=== PATIENT | female | born 1975 | race Caucasian/White ===

== ENCOUNTER 2016-08-02 15:47 | Emergency (ER) | payer BC ==
[~2016-08-02] VITALS: Wt 145.0 kg
[~2016-08-02 15:47] MED LIST: BENA20TA65; CEPH-443 PO; HYDR25TA6; IBUP800T25; IBUP800T25 PO; MECL12.574 PO; METF-382
[2016-08-02] MEDS ORDERED: IBUPROFEN 600 MG TAB PO ONE (16:30)
[2016-08-02] MEDS ORDERED: IBUP-1542 PO (16:44)
[2016-08-02] MEDS ORDERED: LORA10TA3 PO (16:44)
[2016-08-02] MEDS ORDERED: ALBU8.5H3 INH (16:44)
--- NOTE | 2016-08-02 17:12 | RADRPT ---
PROCEDURE: XR Chest. CLINICAL INDICATION: Clinical suspicion of infiltrate. TECHNIQUE: Single frontal view of the chest was obtained COMPARISON: No. FINDINGS: The soft tissues are normal. Degenerative changes are present in the thoracic spine para. The left side aorta, cardiomediastinal silhouette, pulmonary vasculature and hilar structures are normal. The lungs are clear. The costophrenic angles are normal. The left ventricle is upper limits of normal f or size. IMPRESSION: 1. Borderline left ventricular enlargement. 2. Spondylosis of the thoracic spine. 3. No evidence of active cardiopulmonary disease para RPTAT:AAJJ Physician Carlos Date Time Electronically viewed and signed by Physician Carlos on 08/02/2016 17:12 ARLETTE/
--- NOTE | 2016-08-02 21:43 | ERD ---
ER Documentation Chief Complaint Date/Time DATE: 08/02/16 TIME: 21:40 Chief Complaint R SIDE LAETERAL CHEST WALL PAIN WITH COUGHING. RUNNY NOSE AND HARMAN HPI This is a 40-year-old woman with URI symptoms including nasal congestion, rhinorrhea, and cough 3 days, she also states she has had sharp nonexertional nonradiating chest pain for 5-6 days which she states is unrelated to her URI symptoms. She states she has had this chest pain in the past and it is similar to previous episodes. Patient denies recent antibiotic use, no shortness of breath, no calf or leg swelling, no vomiting or diarrhea. ROS All systems reviewed and are negative except as per history of present illness. Medications Home Meds Active Scripts Albuterol Sulfate* (Proair HFA*) 8.5 Gm Hfa.aer.ad, 2 PUFF INH Q6H Y for COUGH, #1 INHALER Prov:YAN COLLIER MD 08/02/16 Loratadine* (Loratadine*) 10 Mg Tablet, 10 MG PO DAILY for NASAL CONGESTION, # 15 TAB Prov:YAN COLLIER MD 08/02/16 Ibuprofen* (Ibuprofen*) 600 Mg Tablet, 600 MG PO Q8 for PAIN AND/OR INFLAMMATION , #30 TAB Prov:YAN COLLIER MD 08/02/16 Meclizine Hcl* (Antivert*) 12.5 Mg Tab, 12.5 MG PO Q6H Y for vertigo, #20 TAB Prov:MARY ANN BEE MALE MODEL 08/23/15 Cephalexin* (Keflex*) 500 Mg Capsule, 500 MG PO QID for 7 Days, CAP Prov:ALEIDA NOBLES PA-C 05/31/15 Ibuprofen* (Motrin*) 800 Mg Tab, 800 MG PO Q6, #30 TAB Prov:ALEIDA NOBLES PA-C 05/31/15 Cephalexin* (Keflex*) 500 Mg Capsule, 500 MG PO QID, #28 CAP Prov:SUSANA MEI PA-C 01/17/15 Reported Medications Hydrochlorothiazide (Hydrochlorothiazide) 25 Mg Tablet 12/10/10 Ibuprofen* (Ibuprofen*) 800 Mg Tablet 12/10/10 Metformin Hcl* (Metformin Hcl*) 500 Mg Tablet 12/10/10 Benazepril Hcl* (Lotensin*) 20 Mg Tablet 4/16/10 Allergies Allergies: Coded Allergies: Oseltamivir (Verified Allergy, Mild, 12/10/10) Shellfish (Verified Allergy, Mild, 12/10/10) Uncoded Allergies: [id number] (SULFA (SULFONAMIDE ANTIBIOTICS)) (Allergy, Mild, rashes/ swelling of body, 12/10/10) PMhx/Soc Hypertension, obesity History of Surgery: Yes (CHOLECYSTECTOMY,bilateral shoulder, knee) Anesthesia Reaction: No Hx Neurological Disorder: No Hx Respiratory Disorders: No Hx Cardiac Disorders: No Hx Psychiatric Problems: No Hx Miscellaneous Medical Probl: No (diabetes, HTN) Hx Alcohol Use: No 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 No submandibular induration , and no pharyngeal erythema NEURO: Alert and oriented 3, cranial nerves II through XII intact bilaterally, pupils equal round reactive to light, no focal deficits or facial asymmetry, sensation intact distally Strength 5/5 in upper and lower extremities bilaterally CARDIAC: Tachycardic and regular, no murmurs rubs or gallops LUNGS: Clear bilaterally no wheezing crackles or stridor ABDOMEN: Soft nontender, no guarding, no rigidity, no rebound, no psoas sign no obturator sign. Normoactive bowel sounds SKIN: Warm and dry to touch, no abrasions, contusions, or hematomas, no lacerations, no ecchymosis, no target lesions, and without ulcers EXTREMITIES: No clubbing cyanosis or edema, calves are bilaterally symmetrical, no Homans sign, no popliteal cord sign. Distal pulses equal and bilateral PSYCH: Normal affect without agitation or irritability Results 24 hrs Current Medications Medications (Trade) Dose Ordered Sig/Kristy Route PRN Reason Start Time Stop Time Status Last Admin Dose Admin Ibuprofen (Motrin) 600 mg ONCE ONCE PO 08/02/16 16:30 08/02/16 16:32 DC 08/02/16 16:48 Procedures/MDM I administered ibuprofen 600 mg p.o. for the patient's symptoms with improvement. EKG performed, read by me: 97 bpm, normal sinus rhythm, normal axis, no acute ST segment changes, narrow QRS complex, with good R-wave progression in precordial leads. One AP view of the chest performed, read by me reveals no acute infiltrates, normal mediastinum, sharp costophrenic and cardiac borders, no air under the diaphragm. Otherwise unremarkable chest x-ray. Differential diagnoses considered, included but not limited to acute coronary syndrome, pulmonary embolism, aortic dissection, abdominal aortic aneurysm, sepsis, stroke, meningitis, encephalitis, pneumonia, appendicitis, cholecystitis , bowel obstruction, pyelonephritis, nephrolithiasis, cystitis, as well as metabolic, hematologic, and electrolyte abnormalities. As well as abscess, cellulitis, fractures, and dislocations. Patient feels much better at this time, and vital signs are normal, symptoms have improved. I did give strict instructions to return to the ED if symptoms continue or worsen, patient will otherwise follow-up with primary care physician. Patient understood instructions and agreed to plan. Departure Diagnosis: Primary Impression: Chest pain Chest pain type: unspecified Qualified Code: R07.9 - Chest pain, unspecified type Additional Impression: URI, acute Condition: Good Patient Instructions: Chest Pain, Uncertain Cause, Uri, Viral, No Abx (Adult) YAN COLLIER MD Aug 02, 2016 21:43
== END 2016-08-02 17:24 | disposition home or self-care (01) ==
LOC: FTE 15:47
DX: R07.89 Other chest pain (principal); J06.9 Acute upper respiratory infection, unspecified; I10 Essential (primary) hypertension; E11.9 Type 2 diabetes mellitus without complications; Z79.84 Long term (current) use of oral hypoglycemic drugs
CPT/HCPCS: 71010; Z7502; Z7610; 93005

== ENCOUNTER 2017-01-27 06:50 | Emergency (ER) | payer BC ==
[~2017-01-27] VITALS: Ht 152.4 cm; Wt 152.5 kg
[~2017-01-27 06:50] MED LIST changes: +ALBU8.5H3 INH; +IBUP-1542 PO; +LORA10TA3 PO; -METF-382; +METF500T4
[2017-01-27 06:54] VITALS: Ht 152.4 cm; Wt 152.5 kg
[2017-01-27] MEDS ORDERED: IBUPROFEN 800 MG TAB PO ONE (07:30)
[2017-01-27 07:39] LABS: URINE BLOOD (Dip) POC Negative (NEGATIVE)
[2017-01-27] MEDS ORDERED: CIPR500T4 PO (08:37)
[2017-01-27] MEDS ORDERED: NITR-58 PO (08:37)
[2017-01-27] MEDS ORDERED: NAPR-688 PO (08:38)
--- NOTE | 2017-01-27 08:50 | ERD ---
ER Documentation Chief Complaint Date/Time DATE: 01/27/17 TIME: 08:49 Chief Complaint PAIN AND BLOOD WITH URINATION HPI This 41-year-old female presents emergency room for dysuria and dark urine. She did not have a dark reddish orange urine until this morning and she took a Pyridium capsule last night. She has no fevers or chills and otherwise feels healthy. She is recently started taking new medication for her diabetes. She has not had very high sugars at home feels otherwise well. ROS All systems reviewed and are negative except as per history of present illness. Medications Home Meds Active Scripts Naproxen* (Naproxen*) 500 Mg Tablet, 500 MG PO BID Y for PAIN, #10 TAB Prov:SONNYTALAT DO 01/27/17 Nitrofurantoin Monohyd Macrocr* (Macrobid*) 100 Mg Capsr, 100 MG PO BID for 3 Days, CAP Prov:SONNYTALAT DO 01/27/17 Ciprofloxacin Hcl* (Ciprofloxacin Hcl*) 500 Mg Tablet, 500 MG PO BID for 3 Days , TAB Prov:SONNYTALAT DO 01/27/17 Albuterol Sulfate* (Proair HFA*) 8.5 Gm Hfa.aer.ad, 2 PUFF INH Q6H Y for COUGH, #1 INHALER Prov:YAN COLLIER MD 08/02/16 Loratadine* (Loratadine*) 10 Mg Tablet, 10 MG PO DAILY for NASAL CONGESTION, # 15 TAB Prov:YAN COLLIER MD 08/02/16 Ibuprofen* (Ibuprofen*) 600 Mg Tablet, 600 MG PO Q8 for PAIN AND/OR INFLAMMATION , #30 TAB Prov:YAN COLLIER MD 08/02/16 Meclizine Hcl* (Antivert*) 12.5 Mg Tab, 12.5 MG PO Q6H Y for vertigo, #20 TAB Prov:MARY ANN BEE NP 08/23/15 Cephalexin* (Keflex*) 500 Mg Capsule, 500 MG PO QID for 7 Days, CAP Prov:ALEIDA NOBLES PA-C 05/31/15 Ibuprofen* (Motrin*) 800 Mg Tab, 800 MG PO Q6, #30 TAB Prov:ALEIDA NOBLES PA-C 05/31/15 Cephalexin* (Keflex*) 500 Mg Capsule, 500 MG PO QID, #28 CAP Prov:SUSANA MEI PA-C 01/17/15 Reported Medications Hydrochlorothiazide (Hydrochlorothiazide) 25 Mg Tablet 12/10/10 Ibuprofen* (Ibuprofen*) 800 Mg Tablet 12/10/10 Metformin Hcl* (Metformin Hcl*) 500 Mg Tablet 12/10/10 Benazepril Hcl* (Lotensin*) 20 Mg Tablet 10/09/09 Allergies Allergies: Coded Allergies: Shellfish (Verified Allergy, Mild, 12/10/10) oseltamivir (Verified Allergy, Mild, 12/10/10) Uncoded Allergies: [id number] (SULFA (SULFONAMIDE ANTIBIOTICS)) (Allergy, Mild, rashes/ swelling of body, 12/10/10) PMhx/Soc History of Surgery: No Anesthesia Reaction: No Hx Neurological Disorder: No Hx Respiratory Disorders: No Hx Cardiac Disorders: No Hx Psychiatric Problems: No Hx Miscellaneous Medical Probl: No Hx Alcohol Use: No Hx Substance Use: No Hx Tobacco Use: No Smoking Status: Never smoker Physical Exam Vitals Vital Signs Date Time Temp Pulse Resp B/P Pulse Ox O2 Delivery O2 Flow Rate FiO2 01/27/17 06:54 97.9 100 18 137/87 98 Physical Exam Const: [] No distress, pleasant Abd: Soft, very mild suprapubic tenderness without guarding or rebound, non distended. Normal bowel sounds Skin: No petechiae or rashes Back: No midline or flank tenderness Ext: No cyanosis, or edema Neur: Awake and alert Psych: Normal Mood and Affect Results 24 hrs Laboratory Tests Test 01/27/17 07:45 Bedside Urine pH (LAB) 5.0 Bedside Urine Protein (LAB) Trace Bedside Urine Glucose (UA) 0.50% Bedside Urine Ketones (LAB) Trace Bedside Urine Blood Negative Bedside Urine Nitrite (LAB) Positive Bedside Urine Leukocyte Esterase (L Negative Current Medications Medications (Trade) Dose Ordered Sig/Kristy Route PRN Reason Start Time Stop Time Status Last Admin Dose Admin Ibuprofen (Motrin) 800 mg ONCE ONCE PO 01/27/17 07:30 01/27/17 07:30 DC Procedures/MDM Urinary tract infection of short duration and 41-year-old female. I am going to discharge her with Cipro and Macrobid. Also naproxen for pain. She asked about Pyridium and I told her she can continue to use it but will likely make her urine reddish orange color. Discharge with primary care follow-up in 2-3 days and return precautions. Departure Diagnosis: Primary Impression: Bladder infection Condition: Stable Patient Instructions: Bladder Infection, Female (Adult) Additional Instructions: Call your primary care doctor TOMORROW for an appointment during the next 2-3 days.See the doctor sooner or return here if your condition worsens before your appointment time. TALAT DENNIS DO Jan 27, 2017 08:50
== END 2017-01-27 08:46 | disposition home or self-care (01) ==
LOC: FTE 06:50
DX: N30.91 Cystitis, unspecified with hematuria (principal); E11.9 Type 2 diabetes mellitus without complications; Z79.84 Long term (current) use of oral hypoglycemic drugs
CPT/HCPCS: 81003; Z7502; 99284

== ENCOUNTER 2017-09-27 11:15 | Emergency (ER) | END 2017-09-27 11:35 | disposition home or self-care (01) ==

== ENCOUNTER 2018-03-29 14:55 | Emergency (ER) | END 2018-03-29 17:07 | disposition home or self-care (01) ==

== ENCOUNTER 2019-01-11 12:14 | Emergency (ER) | payer BC ==
[~2019-01-11] VITALS: Ht 152.4 cm; Wt 156.0 kg
[~2019-01-11 12:14] MED LIST changes: +ACET325T33 PO; -ALBU8.5H3 INH; +ALBU8.5H8 INH; +AMOX1TAB10 PO; +BENZ-6 PO; +CIPR500T4 PO; +GUAI-173 PO; +IBUP-1544; -IBUP800T25; -IBUP800T25 PO; +IBUP800T48 PO; +METF500T24; -METF500T4; +NAPR-688 PO; +NITR-58 PO; +PHEN177S6 MM
[2019-01-11 12:22] VITALS: Ht 152.4 cm; Wt 156.0 kg
[2019-01-11] MEDS ORDERED: KETOROLAC 15 MG INJ IV STA (13:50)
--- NOTE | 2019-01-11 13:56 | ERD ---
ER Documentation Chief Complaint Chief Complaint CHEST PAIN X 4 DAYS HPI This is a 43-year-old female with a past medical history of obesity, hypertension, diabetes is presenting with reproducible palpable right-sided chest and scapular tenderness, worse with movement with associated shortness of breath. The patient reports that it is improved with rest. She did not endorse diaphoresis. She did not endorse nausea or vomiting. She did not endorse lightheadedness or dizziness. The patient denies feeling sick recently. The patient denies fever or chills. The patient has had no headache or vision changes. The patient does not endorse neck or back pain. The patient denies abdominal pain. The patient denies changes to bowel movements or urination. The patient has had no focal deficits. The patient has had no weakness or numbness or tingling to the face or extremities. ROS All systems reviewed and are negative except as per history of present illness. Medications Home Meds Active Scripts Guaifenesin* (Tussin*) 100 Mg/5 Ml Syrup, 200 MG PO Q6 PRN for COUGH, #120 ML Prov:KINSEY HOLDER 03/29/18 Phenol* (Throat Lowry*) 177 Ml Lowry, 2 SPRAY MM Q2H PRN for SORE THROAT for 5 Days, SPRAY Prov:KINSEY HOLDER 03/29/18 Ibuprofen* (Motrin*) 600 Mg Tab, 600 MG PO Q6, #30 TAB Prov:KINSEY HOLDER 03/29/18 Benzonatate* (Tessalon Perle*) 100 Mg Capsule, 100 MG PO Q8H PRN for COUGH, #20 CAP Prov:MARGARITA MINER-C 09/27/17 Acetaminophen* (Tylenol*) 325 Mg Tablet, 2 TAB PO Q8 PRN for PAIN AND OR ELEVATED TEMP, #20 TAB Prov:MARGARITA MINER-C 09/27/17 Amoxicillin/Potassium Clav (Amox-Clav 875-125 mg Tablet) 875-125 mg Tab, 1 TAB PO BID for 7 Days, #14 TAB Prov:MARGARITA MINER-C 09/27/17 Naproxen* (Naproxen*) 500 Mg Tablet, 500 MG PO BID PRN for PAIN, #10 TAB Prov:TALAT DENNIS DO 01/27/17 Nitrofurantoin Monohyd Macrocr* (Macrobid*) 100 Mg Capsr, 100 MG PO BID for 3 Days, CAP Prov:TALAT DENNIS DO 01/27/17 Ciprofloxacin Hcl* (Ciprofloxacin Hcl*) 500 Mg Tablet, 500 MG PO BID for 3 Days, TAB Prov:TALAT DENNIS DO 01/27/17 Albuterol Sulfate* (Proair HFA*) 8.5 Gm Hfa.aer.ad, 2 PUFF INH Q6H PRN for COUGH, #1 INHALER Prov:YAN COLLIER MD 08/02/16 Loratadine* (Loratadine*) 10 Mg Tablet, 10 MG PO DAILY for NASAL CONGESTION, #15 TAB Prov:YAN COLLIER MD 08/02/16 Ibuprofen* (Ibuprofen*) 600 Mg Tablet, 600 MG PO Q8 for PAIN AND/OR INFLAMMATION, #30 TAB Prov:YAN COLLIER MD 08/02/16 Meclizine Hcl* (Antivert*) 12.5 Mg Tab, 12.5 MG PO Q6H PRN for vertigo, #20 TAB Prov:MARY ANN BEE NP 08/23/15 Cephalexin* (Keflex*) 500 Mg Capsule, 500 MG PO QID for 7 Days, CAP Prov:ALEIDA NOBLES PA-C 05/31/15 Ibuprofen* (Motrin*) 800 Mg Tab, 800 MG PO Q6, #30 TAB Prov:ALEIDA NOBLES PA-C 05/31/15 Cephalexin* (Keflex*) 500 Mg Capsule, 500 MG PO QID, #28 CAP Prov:SUSANA MEI PA-C 01/17/15 Reported Medications Hydrochlorothiazide (Hydrochlorothiazide) 25 Mg Tablet 12/10/10 Ibuprofen* (Ibuprofen*) 800 Mg Tablet 12/10/10 Metformin Hcl* (Metformin Hcl*) 500 Mg Tablet 12/10/10 Benazepril Hcl* (Lotensin*) 20 Mg Tablet 10/09/09 Allergies Allergies: Coded Allergies: sulfamethoxazole (Verified Allergy, Intermediate, RASH, 03/29/18) trimethoprim (Verified Allergy, Intermediate, RASH, 03/29/18) Shellfish (Verified Allergy, Mild, 12/10/10) oseltamivir (Verified Allergy, Mild, 12/10/10) Sulfa (Sulfonamide Antibiotics) (Verified Allergy, Unknown, RASH, 03/29/18) PMhx/Soc History of Surgery: Yes (Bilateral shoulder, Right Knee, Right carpal tunnel) Anesthesia Reaction: No Hx Neurological Disorder: No Hx Respiratory Disorders: No Hx Cardiac Disorders: No Hx Psychiatric Problems: No Hx Miscellaneous Medical Probl: Yes (HTN, DM) Hx Alcohol Use: No Hx Substance Use: No Hx Tobacco Use: No Smoking Status: Never smoker FmHx Family History: diabetes Physical Exam Vitals Vital Signs Date Temp Pulse Resp B/P (MAP) Pulse Ox O2 O2 Flow FiO2 Time Delivery Rate 01/11/19 98.0 113 20 243/115 99 12:22 (157) Physical Exam Const: No apparent distress, well-developed, well-nourished Head: Normocephalic, Atraumatic Eyes: Normal Conjunctiva. Extraocular movements intact. ENT: Normal External Ears, Nose and Mouth. Neck: Full range of motion. No meningismus. Resp: Clear to auscultation bilaterally, No wheezes, rales or rhonchi Cardio: Regular rate and rhythm. No murmurs, rubs or gallops Chest: Right-sided chest tenderness to palpation, reproducible Abd: Soft, non tender, non distended. Normal bowel sounds Skin: No petechiae or rashes Back: No midline tenderness. No CVA tenderness Ext: No cyanosis. Right posterior scapular tenderness. Bilateral lower extremity nonpitting edema Neur: Awake and alert, oriented 4. Cranial nerves intact. No facial droop. Normal strength, sensation and coordination. Psych: Normal Mood and Affect Result Diagram: 01/11/19 1255 01/11/19 1255 Results 24 hrs Laboratory Tests Test 01/11/19 12:55 White Blood Count 9.5 10^3/ul Red Blood Count 4.19 10^6/ul Hemoglobin 9.3 g/dl Hematocrit 31.1 % Mean Corpuscular Volume 74.2 fl Mean Corpuscular Hemoglobin 22.2 pg Mean Corpuscular Hemoglobin Concent 29.9 g/dl Red Cell Distribution Width 17.6 % Platelet Count 511 10^3/UL Mean Platelet Volume 8.7 fl Immature Granulocytes % 0.400 % Neutrophils % 64.3 % Lymphocytes % 27.1 % Monocytes % 4.9 % Eosinophils % 2.6 % Basophils % 0.7 % Nucleated Red Blood Cells % 0.0 /100WBC Immature Granulocytes # 0.040 10^3/ul Neutrophils # 6.1 10^3/ul Lymphocytes # 2.6 10^3/ul Monocytes # 0.5 10^3/ul Eosinophils # 0.3 10^3/ul Basophils # 0.1 10^3/ul Nucleated Red Blood Cells # 0.0 10^3/ul Prothrombin Time 12.0 Sec Prothrombin Time Ratio 0.9 INR International Normalized Ratio 0.88 Sodium Level 138 mmol/L Potassium Level 3.8 mmol/L Chloride Level 106 mmol/L Carbon Dioxide Level 22 mmol/L Anion Gap 10 Blood Urea Nitrogen 13 mg/dl Creatinine 0.53 mg/dl Est Glomerular Filtrat Rate mL/min > 60 mL/min Glucose Level 236 mg/dl Calcium Level 8.9 mg/dl Troponin I < 0.012 ng/ml B-Type Natriuretic Peptide 22 PG/ML Procedures/MDM MDM The patient's presentation warrants further investigation. Previous medical records, if available, were reviewed. LABS The patient's laboratory testing was obtained and reviewed. No emergent treatment was required unless described below. CBC: Mild microcytic anemia and thrombocytosis, not emergent. No E/o systemic infection Chemistry: No E/o severe acidosis or alkalosis or renal failure. Hyperglycemia without diabetic ketoacidosis Troponin: No E/o acute ischemia BNP: No E/o heart failure EKG EKG read by me: Rate/Rhythm: Regular rate and rhythm at a rate of 99 Intervals: Normal [place]: Normal Impression: No evidence of acute ischemia or arrhythmia IMAGING Imaging and Radiology interpretation reviewed. CXR FINDINGS: Lung volumes are low. No focal airspace opacification, pleural effusion or pneumothorax is seen. The cardiomediastinal silhouette is within normal limits for size. The osseous structures are unremarkable. IMPRESSION: Low lung volumes. Otherwise, unremarkable chest x-ray. No significant interval change. Electronically viewed and signed by .Candis Cowan MD, on 01/11/2019 13:28 TREATMENT/DISPOSITION The patient presents with right-sided chest and shoulder pain. The patient has a history of shoulder issues. I do suspect a musculoskeletal etiology of symptoms. The patient's chest xray does not reveal pneumonia or pneumothorax or pleural effusions or pulmonary edema. The patient does not have a widened mediastinum and does not have signs or symptoms concerning for thoracic aortic aneurysm or dissection. The patient does not have pneumomediastinum or signs concerning for esophageal tear or rupture. The patient has no clinical or radiographic signs of pericardial effusion or tamponade. The patient does not have pneumoperitoneum and I have decreased suspicion of viscus perforation as possible referred pain. The patient does not have a diagnosis of COPD and is not wheezing today. The patient does not have a history of heart failure and I have low suspicion for this. The patient does have bilateral lower extremity edema which is mild in nature. This is been ongoing for several weeks. I do not suspect heart fa ilure, venous insufficiency is a possibility. There is no evidence for DVT. The patient is not tachypneic or hypoxic. The patient is breathing comfortably and without pleuritic pain. The patient is not on hormonal therapy. The patient has no history of clotting or bleeding disorders. The patient has no calf tenderness. The patient has had no hemoptysis. I have decreased suspicion for PE. The patient's troponin and EKG are reassuring. I have low suspicion for acute coronary syndrome. The patient's HEART score is equal to or less than 3. This stratifies the patient into the low risk (<1%) group for an major adverse cardiac event within the next 30 days. Shared decision making was enacted. The risks and benefits of admission and discharge were discussed with the patient and it was ultimately decided that the patient would be discharged with close outpatient follow up and evaluation for functional testing within 72 hours. The patient was treated with Toradol. DISCHARGE Upon reevaluation of the patient, symptoms have improved. No emergent diagnoses were identified. At this time, I feel that the patient stable for discharge. The patient was instructed to follow-up with a primary care physician in 1-3 days. The patient will be given strict precautions with which to return to the emergency department. Prescriptions: Ibuprofen The patient's blood pressure was elevated at greater than 120/80 while in the emergency department. The patient was otherwise stable with no evidence of hypertensive urgency or emergency. The patient does not require admission for blood pressure control. I have discussed with the patient the risks of hypertension. I have instructed the patient to return to the ER for any new or worsening symptoms including chest pain, shortness of breath, headache, blurred vision, confusion, nausea, vomiting or LOC. I have advised the patient to follow up with the primary care physician for outpatient monitoring and treatment for hypertension in 1-3 days. Disclaimer: Inadvertent spelling and grammatical errors are likely due to EHR/dictation software use and do not reflect on the overall quality of patient care. Note that the electronic time recorded on this note does not necessarily reflect the actual time of the patient encounter. Departure Diagnosis: Primary Impression: Nonspecific chest pain Additional Impressions: Hyperglycemia Microcytic anemia Thrombocytosis Condition: Stable Patient Instructions: Chest Pain, Uncertain Cause, Hyperglycemia (High Blood Sugar), Anemia Additional Instructions: Thank you for for coming to [facility] for your care today. Please ask your nurse or provider if you have questions about your care today and do not leave until all your questions have been answered. Please use any medications given as directed and follow-up with your doctor (or the doctor you were referred to) in the next 1-3 days. If you do not have a primary care doctor you may follow up at the [facility] or [facility] (listed below). You may also use motrin and tylenol as needed for fever and/or pain unless instructed otherwise by your provider or nurse. Indications for more urgent follow-up have been discussed, but you may return to the Emergency Department at ANY time for any worrisome or worsening symptoms. If you have abdominal pain, please know that no test or exam you received is perfect and you should follow up within 8 hours for continued pain. If you had any imaging studies today, such as an X-Ray or CT Scan, these studies will be reviewed later by a radiologist. You will be called if there are important findings that were not identified today, so make sure the contact information you provided at registration is correct. If you received any narcotic pain control medicine today, such as Vicodin, Morphine or Dilaudid, your coordination and judgment may be affected for a number of hours. Please do not drive or operate heavy machinery, and you may want someone to assist you at home. If you were given a prescription for narcot ic medication, be aware that it is very addictive- use sparingly and only if necessary. PLEASE SEEK FURTHER EVALUATION AND MANAGEMENT AT YOUR DOCTORS OFFICE WITHIN THE NEXT 1-3 DAYS. IT IS YOUR RESPONSIBILITY TO MAKE AN APPOINTMENT FOR FOLOW-UP CARE. IF YOU HAVE A PRIMARY DOCTOR, PLEASE CALL THEIR OFFICE TO SCHEDULE AN APPOINTMENT FOR FOLLOW UP. IF YOU DO NOT HAVE A PRIMARY DOCTOR YOU CAN CALL OUR PHYSICIAN REFERRAL HOTLINE AT IF YOU CAN NOT AFFORD TO SEE A PHYSICIAN YOU CAN CHOSE FROM THE FOLLOWING [facility]: [facility] [address] [facility] [address] [facility]. [facility] [address] [facility] [address] [facility] [address] [facility]. [facility]. [address] RENAE SMITH MD Jan 11, 2019 13:56
[2019-01-11] MEDS ORDERED: SITA50TA2 PO (14:05)
[2019-01-11] MEDS ORDERED: NAPR-688 PO (14:05)
[2019-01-11] MEDS ORDERED: GLIM4TAB PO (14:05)
[2019-01-11] MEDS ORDERED: AMLO-147 PO (14:05)
[2019-01-11] MEDS ORDERED: MTF1000T PO (14:05)
[2019-01-11] MEDS ORDERED: IBUP800T48 PO (14:05)
[2019-01-11 15:10] VITALS: BP 132/85; PULSE 92; RESP 18
== END 2019-01-11 15:12 | disposition home or self-care (01) ==
LOC: E/R 12:14
DX: I10 Essential (primary) hypertension (principal); E11.65 Type 2 diabetes mellitus with hyperglycemia; D50.9 Iron deficiency anemia, unspecified; D47.3 Essential (hemorrhagic) thrombocythemia; E66.9 Obesity, unspecified; Z79.84 Long term (current) use of oral hypoglycemic drugs; Z68.44 Body mass index [BMI] 60.0-69.9, adult
CPT/HCPCS: 71045; 80048; 83880; 84484; 85025; 85610; 96374; J1885; Z7502; 93005

== ENCOUNTER 2019-02-22 22:46 | Emergency (ER) | payer BC ==
[~2019-02-22] VITALS: Ht 152.4 cm; Wt 161.0 kg
[~2019-02-22 22:46] MED LIST changes: -ACET325T33 PO; -ALBU8.5H8 INH; +AMLO-147 PO; -AMOX1TAB10 PO; -BENA20TA65; -BENZ-6 PO; -CEPH-443 PO; -CIPR500T4 PO; +GLIM4TAB PO; -GUAI-173 PO; -HYDR25TA6; -IBUP-1542 PO; -IBUP-1544; -LORA10TA3 PO; -MECL12.574 PO; -METF500T24; +MTF1000T PO; -NITR-58 PO; -PHEN177S6 MM; +SITA50TA2 PO
[2019-02-22 22:58] VITALS: Ht 152.4 cm; Wt 161.0 kg
[2019-02-23] MEDS ORDERED: morphine 2 MG INJ IV STA (00:51)
[2019-02-23] MEDS ORDERED: ONDANSETRON 4 MG INJ IV STA (00:51)
[2019-02-23] MEDS ORDERED: IBUPROFEN 600 MG TAB PO ONE (01:30)
[2019-02-23] MEDS ORDERED: SOD CHLORIDE 0.9% 100 ML ONE (01:40)
[2019-02-23] MEDS ORDERED: IOHEXOL 100 ML ONE (01:40)
[2019-02-23 04:00] VITALS: BP 155/97; PULSE 77; RESP 20
== END 2019-02-23 04:00 | disposition home or self-care (01) ==
LOC: E/R 22:46
DX: D64.9 Anemia, unspecified (principal); R60.0 Localized edema; I10 Essential (primary) hypertension; E11.9 Type 2 diabetes mellitus without complications; R06.02 Shortness of breath; Z79.84 Long term (current) use of oral hypoglycemic drugs
CPT/HCPCS: 36415; 71045; 71275; 80048; 81003; 81025; 83880; 84484; 84702; 85025; 85378; 85610; 85730; 93005; 93970; Q9967; Z7502; Z7610; J2270; J2405

== ENCOUNTER 2019-04-23 20:33 | Emergency (ER) | payer BC ==
[~2019-04-23] VITALS: Ht 152.4 cm; Wt 152.1 kg
[~2019-04-23 20:33] MED LIST changes: +ACET500C5 PO; +CARV3.1260 ORAL; +DICL100G37 TOP; +FURO20TA3 ORAL; -GLIM4TAB PO; +GLIM4TAB3 PO; +IBUP-1544 ORAL; +METF100010 ORAL; -NAPR-688 PO; +NAPR-985 PO
[2019-04-23 20:57] VITALS: Ht 152.4 cm; Wt 152.1 kg
[2019-04-23] MEDS ORDERED: KETOROLAC 30 MG INJ IM STA (22:51)
[2019-04-24 00:25] VITALS: BP 164/97; PULSE 97; RESP 20
== END 2019-04-24 00:27 | disposition home or self-care (01) ==
LOC: E/R 20:33
DX: S93.401A Sprain of unspecified ligament of right ankle, initial encounter (principal); I10 Essential (primary) hypertension; E11.9 Type 2 diabetes mellitus without complications; E66.9 Obesity, unspecified; W18.39XA Other fall on same level, initial encounter; Y92.9 Unspecified place or not applicable; Z68.44 Body mass index [BMI] 60.0-69.9, adult; Z79.84 Long term (current) use of oral hypoglycemic drugs
CPT/HCPCS: 73610; 81025; 96372; J1885; Z7502